=== PATIENT | male | born 1940 | race Caucasian/White ===

== ENCOUNTER → 2021-03-20 | Day surgery (SDC) | payer MEDICARE ==
[2021-03-18 12:02] LABS: BASOPHILS % 0.2 % (0.0-1.0); EOSINOPHILS % 0.2 % (0.0-6.0); HEMATOCRIT 35.1 % (38.2-49.6); HEMOGLOBIN 11.3 g/dL (14.0-18.0); LYMPHOCYTES # (AUTO) 1.2 (1.0-3.2); LYMPHOCYTES % 23.6 % (18.0-39.1); MEAN CORPUSCULAR HEMOGLOBIN 33.7 pg (28-32); MEAN CORPUSCULAR HGB CONC 32.2 g/dL (31-35); MEAN CORPUSCULAR VOLUME 104.8 fL (81-99); MONOCYTES # (AUTO) 1.9 (0.2-0.8); NEUTROPHILS # (AUTO) 1.9 (2.1-6.9); NEUTROPHILS % 37.2 % (38.7-80.0); PLATELET COUNT 116 x10e3/uL (140-360); RED BLOOD COUNT 3.35 x10e6/uL (4.3-5.7); RED CELL DISTRIBUTION WIDTH 15.5 % (11.7-14.4)
[~2021-03-20] MED LIST: ACETAMINOPHEN-1 EAC3 PO; ASPIRIN81 MG PO; BUPIVACAINE HCL 0.5% INJ 30 ML VIAL INJ ONE; CLINDAMYCIN 600MG / 50ML 50 ML IV ONE; LIDOCAINE 1% W/EPINEPHRINE 20 ML VIAL ONE; LORATADINE-D 21 EACH PO; METOPROLOL SUCC25 MG PO; MUPIROCIN 2% OINT 22 GM TUBE ONE; POTASSIUM CHLO20 ME1 PO; PRADAXA75 MG PO; PROZAC20 MG PO
[2021-03-20 11:10] VITALS: BP 117/73
== END | disposition home or self-care (01) ==
LOC: OR 06:18
PROVIDERS: ATTEND Plastic Surgery
DX: Z48.3 Aftercare following surgery for neoplasm (principal); Z85.828 Personal history of other malignant neoplasm of skin; C90.00 Multiple myeloma not having achieved remission; D75.9 Disease of blood and blood-forming organs, unspecified; N28.9 Disorder of kidney and ureter, unspecified; I69.354 Hemiplegia and hemiparesis following cerebral infarction affecting left non-dominant side; G47.33 Obstructive sleep apnea (adult) (pediatric); I10 Essential (primary) hypertension; I48.91 Unspecified atrial fibrillation; Z88.1 Allergy status to other antibiotic agents; Z01.810 Encounter for preprocedural cardiovascular examination; Z01.812 Encounter for preprocedural laboratory examination; Z01.818 Encounter for other preprocedural examination; Z20.822 Contact with and (suspected) exposure to COVID-19; Z79.82 Long term (current) use of aspirin
CPT/HCPCS: 15220; 15240; 15241; 36415; 71046; 85025; 93005; U0002